=== PATIENT | female | born 1990 | race African-American/Black ===

== ENCOUNTER 2021-05-17 17:25 | Emergency (ER) | payer BC, SELFPAY ==
--- NOTE | ~2021-05-17 | XR_ITS ---
EXAMINATION: XR chest 2V DATE: 05/17/2021 18:12 INDICATION: Sternal chest pain and shortness of breath TECHNIQUE: PA and lateral views of the chest are obtained. COMPARISON: 02/23/2017 FINDINGS: The lungs are free of acute opacities. There is no pleural effusion or pneumothorax. The ca rdiomediastinal silhouette is normal. The visualized bones and soft tissues are unremarkable. IMPRESSION: 1. No acute cardiopulmonary abnormality. Reviewed, dictated and finalized at location A.
--- NOTE | 2021-05-17 17:26 | ECG_ITS ---
Measurements Intervals [place] Rate: 97 P: 75 MO: 137 QRS: 3 QRSD: 70 T: 55 QT: 348 QTc: 443 Interpretive Statements SINUS RHYTHM POSSIBLE LEFT ATRIAL ENLARGEMENT BORDERLINE ECG Electronically Signed On 05-17-2021 20:11:35 CDT by David Waldrop D.O.
[2021-05-17 17:36] VITALS: BP 127/65; PULSE 108; RESP 14; TEMP 36.9; O2SAT 99
[2021-05-17 18:00] LABS: Basophils Percent Auto 0.4 % (0.2-1.2); Eosinophils Percent Auto 0.4 % (0-4.4); Hematocrit 42.9 % (37.0-47.0); Hemoglobin 14.4 g/dL (12.0-15.0); Immature Granulocyte Absolute 0.02 K/mm3 (0.00-0.031); Immature Granulocyte Percent A 0.3 % (0-0.5); Lymphocytes Absolute Auto 2.67 K/mm3 (0.9-3.2); Lymphocytes Percent Auto 35.2 % (18.3-44.2); Mean Corpuscular HGB Conc 33.6 g/dl (32-36); Mean Corpuscular Hemoglobin 30.8 pg (26-34); Mean Corpuscular Volume 91.9 fl (80-100); Monocytes Absolute Auto 0.5 K/mm3 (0.1-0.6); Monocytes Percent Auto 6.1 % (2.6-8.5); Neutrophils Absolute Auto 4.4 K/mm3 (1.3-6.7); Neutrophils Percent Auto 57.6 % (45.5-73.1); Platelet Count Result 265 k/mm3 (150-375); Red Blood Count 4.67 M/mm3 (4.2-5.4); White Blood Count 7.6 K/mm3 (4.5-10.0)
[2021-05-17 18:09] LABS: Anion Gap 14 mmol/L (8-16); Blood Urea Nitrogen 13 mg/dL (7-17); Carbon Dioxide 23 mmol/L (22-30); Chloride 102 mmol/L (98-107); Estimated CRCL calculation 101 ml/min; Estimated Glomerular Filt Rate > 60; Glucose 93 mg/dL (65-110); Potassium 3.7 mmol/L (3.4-5.0); Sodium 139 mmol/L (137-145)
[2021-05-17 18:10] LABS: INR 0.9; Prothrombin Time 12.3 Seconds (11.1-14.7)
[2021-05-17 18:11] LABS: Partial Thromboplastin Time 31.5 SECONDS (22.3-36.8)
[2021-05-17 18:21] LABS: Troponin I < 0.012 ng/mL (0.000-0.034)
[2021-05-17 20:12] VITALS: BP 120/70; PULSE 90; TEMP 37; O2SAT 100
[2021-05-17 21:31] VITALS: BP 145/84; PULSE 103; RESP 19; O2SAT 100
--- NOTE | 2021-05-17 21:42 | ED.CHESTPAIN ---
HPI - Chest Pain General Chief Complaint: Chest Pain Stated Complaint: chest pain Time Seen by Provider: 05/17/21 21:12 Source: patient and family Mode of arrival: ambulatory Limitations: no limitations History of Present Illness HPI narrative: Patient 30 years old -Serbian female presents with intermittent weird sensation on the top of the chest usually last for few seconds. This has been going for the last 10 days. Patient denies shortness of breath, fever, chills, nausea, vomiting, coughing. Patient is fully vaccinated for COVID-19. History of acne vulgaris on Accutane started 1 month ago Review of Systems Review of Systems: CONSTITUTIONAL: Denies fever, chills, or sweats. EYES: Denies visual changes, redness, or discharge. ENT: Denies rhinorrhea, congestion, sore throat, or otalgia. CARDIOVASCULAR: Denies chest pain, palpitations, or edema. RESPIRATORY: Denies cough or dyspnea. GASTROINTESTINAL: Denies abdominal pain, nausea, vomiting, or diarrhea. GENITOURINARY: Denies dysuria or hematuria. SKIN: Denies rash or itching. MUSCULOSKELETAL: Denies back pain, joint pain, or myalgia. NEUROLOGIC: Denies headache, numbness, or weakness. PSYCHIATRIC: Denies anxiety or depression. Exam Narrative: General appearance: Well-developed, well-nourished, intermittent sighing Skin: Normal color Head: Normocephalic, nontraumatic Eyes: Clear conjunctiva ENT: Oropharynx normal, ears normal, nose normal Neck: Supple, nontender Chest and respiratory: Airway patent, no respiratory distress, no accessory muscle use Heart: Regular rate/rhythm Abdomen: Soft, nontender, no organomegaly, quiet bowel sounds Vascular: Normal peripheral pulses, normal capillary refill. 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 Atypical chest pain, anxiety related symptoms are my concern. Labs, chest x-ray, EKG ordered Differential Diagnosis Differential diagnosis: Likely atypical chest pain, costochondritis and other ( and anxiety related symptoms) Lab Data Result diagrams: 05/17/21 17:49 05/17/21 17:49 Labs: Lab Results 05/17/21 05/17/21 05/17/21 Range/Units 17:49 17:49 17:49 WBC 7.6 (4.5-10.0) K/mm3 RBC 4.67 (4.2-5.4) M/mm3 Hgb 14.4 (12.0-15.0) g/dL Hct 42.9 (37.0-47.0) % MCV 91.9 (80-100) fl MCH 30.8 (26-34) pg MCHC 33.6 (32-36) g/dl RDW 13.0 (11.5-14.5) % Plt Count 265 (150-375) k/mm3 MPV 10.0 (7.4-10.4) fl Immature Gran % (Auto) 0.3 (0-0.5) % Neut % (Auto) 57.6 (45.5-73.1) % Lymph % (Auto) 35.2 (18.3-44.2) % O'Brien % (Auto) 6.1 (2.6-8.5) % Eos % (Auto) 0.4 (0-4.4) % Baso % (Auto) 0.4 (0.2-1.2) % Lymph # (Auto) 2.67 (0.9-3.2) K/mm3 O'Brien # (Auto) 0.5 (0.1-0.6) K/mm3 Eos # (Auto) 0.0 (0-0.3) K/mm3 Baso # (Auto) 0.0 (0.0-0.1) K/mm3 Abs Immat Gran (auto) 0.02 (0.00-0.031) K/mm3 Absolute Neuts (auto) 4.4 (1.3-6.7) K/mm3 Absolute Nucleated R
[2021-05-17 21:48] LABS: Alanine Aminotransferase 19 U/L (4-35); Albumin Level 5.4 g/dL (3.5-5.1); Alkaline Phosphatase 81 U/L (38-126); Aspartate Amino Transferase 33 U/L (14-36)
[2021-05-17 22:33] LABS: D Dimer 0.35 ug/mL (<0.48)
[2021-05-17 23:20] VITALS: BP 106/63; PULSE 80; RESP 16; O2SAT 100
== END 2021-05-17 23:30 | disposition home or self-care (01) ==
LOC: ANHED 22:08
PROVIDERS: Emergency Provider Emergency Medicine; PCP Student in an Organized Health Care Education/Training Program
DX: R07.89 Other chest pain (principal); R94.31 Abnormal electrocardiogram [ECG] [EKG]
CPT/HCPCS: 36415; 71046; 80048; 80076; 84484; 85025; 85380; 85610; 85730; 93005; 99284

== ENCOUNTER → 2021-09-29 16:40 | Outpatient (CLI) | payer BC, SELFPAY ==
--- NOTE | ~2021-09-29 | XR_ITS ---
XR chest 2V DATE: 09/29/2021 16:57 INDICATION: Abnormal serum immunological findings TECHNIQUE: 2 views COMPARISON: 05/17/2021 2 view chest FINDINGS: Normal heart size. No hilar or mediastinal enlargement. No pulmonary infiltrate or consolid ation, pleural effusion or pulmonary vascular congestion or pneumothorax. Included skeletal structure s are unremarkable. IMPRESSION: Negative chest Reviewed, dictated and finalized at location A. NG CONSULTANT IMPRESSION: Negative chest
== END ==
PROVIDERS: PCP Student in an Organized Health Care Education/Training Program
DX: R07.89 Other chest pain (principal); R76.8 Other specified abnormal immunological findings in serum
CPT/HCPCS: 71046

== ENCOUNTER 2021-10-01 21:40 | Emergency (ER) | payer BC, SELFPAY ==
--- NOTE | ~2021-10-01 | XR_ITS ---
EXAMINATION: XR chest 2V DATE: 10/01/2021 22:02 INDICATION: Chest pressure on inspiration. Palpitations. TECHNIQUE: Frontal and lateral views of the chest were obtained. COMPARISON: Chest 2 views 09/25/2021 FINDINGS: The chest demonstrates clear lungs without pneumonia, pleural effusion, or pneumothorax. Th e heart size is normal. IMPRESSION: 1. No acute cardiopulmonary disease. Reviewed, dictated and finalized at location E. E BUSINESS ANALYST
[2021-10-01 21:42] VITALS: BP 125/74; PULSE 110; RESP 16; TEMP 36.4; O2SAT 100
--- NOTE | 2021-10-01 21:42 | ECG_ITS ---
Measurements Intervals [place] Rate: 99 P: 71 [place]: 132 QRS: 6 QRSD: 73 T: 52 QT: 334 QTc: 429 Interpretive Statements SINUS RHYTHM BASELINE ARTIFACT- I, II, III, AVR, AVL, AVF, V1-V2 NORMAL ECG Electronically Signed On 10-02-2021 6:36:00 CAP MAKER by David Waldrop D.O.
--- NOTE | 2021-10-01 22:02 | ED.ARRPALP ---
HPI - Arrhythmia/Palpitations General Chief Complaint: Arrhythmia/Palpitations Stated Complaint: palpations Time Seen by Provider: 10/01/21 21:50 Source: patient Mode of arrival: ambulatory Limitations: no limitations History of Present Illness HPI narrative: Patient is a 31-year-old female complaining of palpitations, single episode lasted for approximately 45 minutes and now resolved. Patient states that she was also having chest pressure and deep inspiration yesterday but also resolved. Patient denies any shortness of breath abdominal pain, nausea, vomiting, diaphoresis, fever or chills. Patient states that she had a similar episode last year and was seen and evaluated here in the emergency room. Related Data Home Medications Medication Instructions Recorded Confirmed No Home Medications 10/01/21 10/01/21 Allergies Allergy/AdvReac Type Severity Reaction Status Date / Time No Known Allergies Allergy Verified 10/01/21 21:53 Review of Systems Review of Systems: All systems reviewed & are unremarkable except as noted in HPI and below Constitutional: Constitutional: Denies body ache(s), Denies chills, Denies excessive sweating, Denies fatigue, Denies fever(s), Denies headache(s), Denies lethargy, Denies malaise, Denies weakness and Denies weight loss Eyes: Eyes: Denies blurry vision, Denies change in vision and Denies loss of vision ENT: Denies dizziness, Denies ear discharge, Denies headache(s), Denies lip swelling, Denies epistaxis, Denies nasal congestion, Denies neck pain, Denies throat swelling and Denies tongue swelling Cardiovascular: Cardiovascular: Denies diaphoresis, Denies rapid heart rate, Denies edema, Denies irregular heart rhythm, Denies lightheadedness, Denies dyspnea and Denies dyspnea on exertion Respiratory: Respiratory: Denies chest congestion, Denies cough, Denies hemoptysis, Denies dyspnea and Denies dyspnea on exertion Gastrointestinal: Gastrointestinal: Denies abdominal pain, Denies melena, Denies hematochezia, Denies diarrhea, Denies nausea, Denies vomiting and Denies hematemesis Musculoskeletal: Musculoskeletal: Denies abnormal gait, Denies deformity, Denies joint swelling, Denies limited range of motion, Denies neck pain and Denies numbness Neurologic: Denies Abnormal speech present, Denies abnormal gait, Denies confusion, Denies dizziness, Denies headache(s), Denies focal weakness, Denies loss of vision, Denies numbness, Denies Other visual disturbances, Denies Sensory deficit (Neuro) and Denies weakness Psychiatric: Psychiatric: Denies confusion, Denies depression, Denies auditory hallucinations, Denies homicidal ideation and Denies suicidal ideation Endocrine: Endocrine: Denies cold intolerance, Denies excessive sweating, Denies fatigue, Denies heat intolerance and Denies palpitations Hematologic/Lymphatic: Hematologic/Lymphatic: Denies easy bleeding and Denies easy bruising Allergic/Immunologic: Allergic/Immunologic: Denies lip swelling, Denies throat swelling and Denies tongue swelling PMFSH Comments Past medical history: None Family history: None Social history: Non-smoker no EtOH or drug use Exam Const: General: cooperative, healthy appearing, comfortable, no acute distress, well developed, alert and awake; No confusion Orientation/consciousness: oriented to person, oriented to place, oriented to time, patient oriented x3 and No confusion Limitations: no limitations HENMT: Head: normal to inspection, normocephalic and atraumatic Ears: hearing grossly normal bilaterally, TM normal on the right and TM normal on the left General nose exam: Normal external nose present, Normal nares present and No nasal discharge present Face and sinus: normal facial exam Mouth: Yes Normal oral and palatal mucosa present, Yes lip normal, Yes tongue normal and Yes oropharynx normal Throat: posterior oropharynx normal, tonsils normal and uvula midline Eyes: General: appearance normal, both eyes and all r
[2021-10-01 22:34] LABS: Basophils Percent Auto 0.4 % (0.2-1.2); Eosinophils Absolute Auto 0.1 K/mm3 (0-0.3); Eosinophils Percent Auto 0.6 % (0-4.4); Hematocrit 37.5 % (37.0-47.0); Hemoglobin 12.4 g/dL (12.0-15.0); Immature Granulocyte Absolute 0.02 K/mm3 (0.00-0.031); Immature Granulocyte Percent A 0.2 % (0-0.5); Lymphocytes Absolute Auto 2.97 K/mm3 (0.9-3.2); Lymphocytes Percent Auto 29.2 % (18.3-44.2); Mean Corpuscular HGB Conc 33.1 g/dl (32-36); Mean Corpuscular Hemoglobin 30.6 pg (26-34); Mean Corpuscular Volume 92.6 fl (80-100); Mean Platelet Volume 10.7 fl (7.4-10.4); Monocytes Absolute Auto 0.8 K/mm3 (0.1-0.6); Monocytes Percent Auto 7.7 % (2.6-8.5); Neutrophils Absolute Auto 6.3 K/mm3 (1.3-6.7); Neutrophils Percent Auto 61.9 % (45.5-73.1); Platelet Count Result 249 k/mm3 (150-375); Red Blood Count 4.05 M/mm3 (4.2-5.4); Red Cell Distribution Width 12.9 % (11.5-14.5); White Blood Count 10.2 K/mm3 (4.5-10.0)
[2021-10-01 22:53] LABS: Alanine Aminotransferase 14 U/L (4-35); Albumin Level 4.8 g/dL (3.5-5.1); Alkaline Phosphatase 54 U/L (38-126); Anion Gap 12 mmol/L (8-16); Aspartate Amino Transferase 28 U/L (14-36); Bilirubin,Total 0.8 mg/dL (0.2-1.3); Blood Urea Nitrogen 14 mg/dL (7-17); Calcium 9.4 mg/dL (8.4-10.2); Carbon Dioxide 23 mmol/L (22-30); Chloride 104 mmol/L (98-107); Estimated CRCL calculation 89 ml/min; Estimated Glomerular Filt Rate > 60; Glucose 82 mg/dL (65-110); Lipase 190 U/L (23-300); Potassium 3.7 mmol/L (3.4-5.0); Sodium 139 mmol/L (137-145)
[2021-10-01 22:54] LABS: D Dimer 0.27 ug/mL (<0.48)
[2021-10-01 23:00] LABS: Prothrombin Time 12.4 Seconds (11.1-14.7)
[2021-10-01 23:01] LABS: Partial Thromboplastin Time 33.6 SECONDS (22.3-36.8)
[2021-10-01 23:04] LABS: Troponin I < 0.012 ng/mL (0.000-0.034)
[2021-10-01 23:12] VITALS: BP 106/62; PULSE 74; RESP 15; O2SAT 100
[2021-10-01 23:49] VITALS: BP 107/79; PULSE 84; RESP 16; O2SAT 97
== END 2021-10-01 23:34 | disposition home or self-care (01) ==
PROVIDERS: Emergency Medicine; Emergency Provider Emergency Medicine; PCP Student in an Organized Health Care Education/Training Program
DX: R00.2 Palpitations (principal)
CPT/HCPCS: 36415; 71046; 80053; 83690; 84484; 85025; 85380; 85610; 85730; 93005; 99284

== ENCOUNTER 2022-03-12 11:22 | Emergency (ER) | payer OTHER, BC, SELFPAY ==
[2022-03-12 11:25] VITALS: BP 119/70; PULSE 92; RESP 16; TEMP 37.1; O2SAT 100
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
== END 2022-03-12 12:32 | disposition home or self-care (01) ==
LOC: ANHED 12:28
PROVIDERS: Emergency Provider General Practice; PCP Student in an Organized Health Care Education/Training Program
DX: Z04.1 Encounter for examination and observation following transport accident (principal); V43.52XA Car driver injured in collision with other type car in traffic accident, initial encounter
CPT/HCPCS: 99283

== ENCOUNTER 2022-06-03 17:15 | Emergency (ER) | payer OTHER, BC, SELFPAY ==
--- NOTE | ~2022-06-03 | XR_ITS ---
EXAMINATION: XR wrist RT min 3V INDICATION: Right wrist pain TECHNIQUE: Four views of the right wrist are obtained. COMPARISON: None available FINDINGS: There is no fracture, dislocation, or subluxation. The bones, soft tissues, and joint space s are normal. IMPRESSION: 1. No acute osseous abnormality. Reviewed, dictated and finalized at location F.
[2022-06-03 17:20] VITALS: BP 112/75; PULSE 84; RESP 16; TEMP 37; O2SAT 100
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
== END 2022-06-03 17:55 | disposition home or self-care (01) ==
PROVIDERS: Emergency Provider Nurse Practitioner Family; PCP Student in an Organized Health Care Education/Training Program
DX: S63.501A Unspecified sprain of right wrist, initial encounter (principal); T14.90XA Injury, unspecified, initial encounter
CPT/HCPCS: 73110; 99213; G0463

== ENCOUNTER 2022-06-08 12:26 | Emergency (ER) | payer BC, SELFPAY ==
[2022-06-08] VITALS (19 sets, daily range): BP systolic 112–131; BP diastolic 59–96; PULSE 68–106; RESP 14–19; TEMP 36.4–36.8; O2SAT 93–100
--- NOTE | ~2022-06-08 | CT_ITS ---
EXAMINATION: CT abdomen pelvis w con DATE: 06/08/2022 17:02 INDICATION: epigastric pain TECHNIQUE: Computed tomography (CT) of the abdomen and pelvis was performed with 100 mL Omnipaque-350 intravenous contrast. Automated exposure control and iterative reconstruction technique were employe d. The dose-length product was 444.38 mGy-cm. COMPARISON: None. FINDINGS: Lower thorax: Left upper lobe granuloma Liver: Normal. Biliary/Gallbladder: Gallbladder is normal. No bile duct dilation. Pancreas: No mass or duct dilation. Spleen: Normal. Adrenals:No mass. Kidneys: No mass, stone, or hydronephrosis. GI tract: Distal esophageal and gastric wall edema. No small or large bowel dilation. Normal appendix . Mesentery/Peritoneum: No ascites, mass, or free air. Retroperitoneum: No mass. Pelvis: Wall thickening in a partially distended urinary bladder, remaining pelvic organs are within normal limits. Soft Tissues: Soft tissues and body wall unremarkable. Bones: No acute osseous finding. IMPRESSION: Esophagitis/gastritis. Urinary bladder wall thickening may be secondary to inadequate distention or c ystitis, correlate with urinalysis. Reviewed, dictated and finalized at location K. IMPRESSION: Esophagitis/gastritis. Urinary bladder wall thickening may be secondary to inad equate distention or cystitis, correlate with urinalysis.
--- NOTE | ~2022-06-08 | XR_ITS ---
EXAMINATION: XR chest 2V DATE: 06/08/2022 13:00 INDICATION: Midline chest pain TECHNIQUE: PA and lateral views of the chest are obtained. COMPARISON: 10/01/2021 FINDINGS: The lungs are free of acute opacities. No pleural effusion or pneumothorax. The cardiomedia stinal silhouette is normal. The visualized bones and soft tissues are unremarkable. IMPRESSION: 1. No acute cardiopulmonary abnormality. Reviewed, dictated and finalized at location A.
--- NOTE | 2022-06-08 12:28 | ECG_ITS ---
Measurements Intervals [place] Rate: 94 P: 74 DE: 138 QRS: 8 QRSD: 85 T: 61 QT: 343 QTc: 430 Interpretive Statements SINUS RHYTHM LEFT ATRIAL ENLARGEMENT [-0.15mV P WAVE IN V1/V2] ABNORMAL ECG COMPARED TO ECG 10/01/2021 21:45:22 NO SIGNIFICANT CHANGES Electronically Signed On 06-08-2022 13:58:11 CDT by Bryan Heart M.D.
[2022-06-08 13:02] LABS: Basophils Percent Auto 0.3 % (0.2-1.2); Eosinophils Absolute Auto 0.1 K/mm3 (0-0.3); Eosinophils Percent Auto 0.8 % (0-4.4); Hematocrit 40.3 % (37.0-47.0); Hemoglobin 13.4 g/dL (12.0-15.0); Immature Granulocyte Absolute 0.02 K/mm3 (0.00-0.031); Immature Granulocyte Percent A 0.2 % (0-0.5); Lymphocytes Absolute Auto 2.16 K/mm3 (0.9-3.2); Mean Corpuscular HGB Conc 33.3 g/dl (32-36); Mean Corpuscular Hemoglobin 30.4 pg (26-34); Mean Corpuscular Volume 91.4 fl (80-100); Mean Platelet Volume 11.1 fl (7.4-10.4); Monocytes Absolute Auto 0.6 K/mm3 (0.1-0.6); Monocytes Percent Auto 5.1 % (2.6-8.5); Neutrophils Percent Auto 73.6 % (45.5-73.1); Platelet Count Result 198 k/mm3 (150-375); Red Blood Count 4.41 M/mm3 (4.2-5.4); White Blood Count 10.8 K/mm3 (4.5-10.0)
[2022-06-08 13:20] LABS: Alanine Aminotransferase 19 U/L (6-35); Albumin Level 5.1 g/dL (3.5-5.1); Alkaline Phosphatase 70 U/L (38-126); Anion Gap 13 mmol/L (8-16); Aspartate Amino Transferase 35 U/L (14-36); Bilirubin,Total 1.4 mg/dL (0.2-1.3); Blood Urea Nitrogen 13 mg/dL (7-17); Carbon Dioxide 24 mmol/L (22-30); Chloride 101 mmol/L (98-107); Estimated CRCL calculation 100 ml/min; Estimated Glomerular Filt Rate > 60; Glucose 88 mg/dL (65-110); Lipase 109 U/L (23-300); Potassium 4.2 mmol/L (3.4-5.0); Sodium 138 mmol/L (137-145)
[2022-06-08 13:32] LABS: Troponin I 0.016 ng/mL (0.000-0.034)
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
[2022-06-08 16:46] LABS: Add Urine Microscopic? YES; Appearance Urine Clear (Clear); Bacteria Urine Trace /hpf; Bilirubin Urine Negative (Negative); Blood Urine Negative (Negative); Color Urine Yellow (Yellow); Glucose Urine UA Negative (Negative); Ketones Urine 1+ mg/dL (Negative); Leukocyte Esterase Ur Negative LEU/UL (Negative); Mucus Urine Few /lpf; Nitrate Urine Negative (Negative); Protein Urine Negative (Negative); RBC Urine 0-2 /hpf (0-2); Specific Grav Ur 1.025 (1.001-1.035); Squamous Epithelial Cell Urine Occasional /hpf (Few); Urobilinogen Urine Negative mg/dL (<2.0); WBC Urine 0-3 /hpf
[2022-06-08] MEDS: PANTOPRAZOLE SODIUM IV 40 MG VIAL IV PUSH (16:47)
[2022-06-08] MEDS: ONDANSETRON INJ 4 MG/2 ML VIAL IV PUSH (16:47)
[2022-06-08] MEDS: SODIUM CHLORIDE 0.9% IV 1,000 ML 999 ML IV CONT (16:47)
[2022-06-08 17:11] LABS: INR 1.1; Prothrombin Time 13.6 Seconds (11.1-14.7)
[2022-06-08 17:12] LABS: Partial Thromboplastin Time 29.2 SECONDS (22.3-36.8)
[2022-06-08 17:23] LABS: Troponin I < 0.012 ng/mL (0.000-0.034)
== END 2022-06-08 19:15 | disposition home or self-care (01) ==
PROVIDERS: Emergency Medicine; Emergency Provider Emergency Medicine; PCP Student in an Organized Health Care Education/Training Program
DX: K29.00 Acute gastritis without bleeding (principal)
CPT/HCPCS: 36415; 71046; 74177; 80053; 81001; 81025; 83690; 84484; 85025; 85610; 85730; 93005; 96365; 96375; 99284; C9113; J0131; J2405; J7030; Q9967

== ENCOUNTER → 2022-11-11 14:11 | Outpatient (CLI) | payer OTHER, SELFPAY ==
--- NOTE | ~2022-11-11 | MMUS_ITS ---
EXAMINATION: MM diagnostic peace BI w quan, US breast BI complete HISTORY: Bilateral breast pain TECHNIQUE: Additional 3-D tomosynthesis images of the breasts were performed and synthetic 2-D images were generated. CAD analysis was submitted and interpreted. High resolution bilateral complete breas t ultrasound was performed. COMPARISON: None BREAST PARENCHYMAL COMPOSITION: The breasts are heterogeneously dense, which may obscure small masses FINDINGS: MAMMOGRAPHIC FINDINGS: There are no suspicious masses, calcifications or architectural distortion in either breast to sugges t malignancy. ULTRASOUND: Complete bilateral US of all 4 quadrants of the breasts and retroareolar region was reviewed. Normal heterogeneous echotexture without focal solid or cystic mass. IMPRESSION: 1. No evidence for malignancy in either breast. 2. Routine yearly screening mammogram and regular clinical breast examination are recommended. BI-RADS Category 1: Negative Reviewed, dictated and finalized at location A. IMPRESSION: 1. No evidence for malignancy in either breast. 2. Routine yearly screening mammogram and regular clinical breast examination a re recommended. BI-RADS Category 1: Negative
== END ==
PROVIDERS: PCP Student in an Organized Health Care Education/Training Program; Visit Provider Student in an Organized Health Care Education/Training Program
DX: N64.4 Mastodynia (principal)
CPT/HCPCS: 76641; 77062; 77066; G0279